=== PATIENT | female | born 1975 | race Caucasian/White ===

== ENCOUNTER 2017-03-05 12:39 | Emergency (ER) | payer MEDICAID ==
[~2017-03-05] VITALS: Ht 157.5 cm; Wt 49.9 kg
[~2017-03-05 12:39] MED LIST: BIOTIN1 M1 PO; CELEXA 20 MG TA20 MG PO; CIPRO500 MG PO; HUMALOG100 UNIT/1 SUBQ; LANTUSSOLASTAR SUBQ; LEVOTHYROXINE100 MC1 PO; LIORESAL 10 MG10 MG PO; LISINOPRIL10 MG; PRILOSEC 20 MG20 MG PO; SYNTHROID25 MCG PO; VITAMIN B-1100 M1 PO; VITAMIN B122500 MCG PO; VOLTAREN GEL 1100 G2 TOP
[2017-03-05] MEDS ORDERED: REGLAN 10 MG TA10 MG PO (12:45)
[2017-03-05 12:55] LABS: ABSOLUTE BASOPHILS 0.1 thou/uL (0.0-0.2); ABSOLUTE EOSINOPHILS 0.1 thou/uL (0.0-0.7); ABSOLUTE LYMPHOCYTES 1.4 thou/uL (0.8-5.3); ABSOLUTE MONOCYTES 0.8 thou/uL (0.0-1.2); ABSOLUTE NEUTROPHILS 9.7 thou/uL (1.6-8.1); BASOPHILS 0.6 %; EOSINOPHILS 0.6 %; HEMATOCRIT 44.1 % (37.0-47.0); HEMOGLOBIN 14.8 gm/dL (12.0-15.0); LYMPHOCYTES 11.5 %; MCHC 33.6 g/dL (28.0-37.0); MCV 98.2 fL (80.0-100.0); MONOCYTES 6.8 %; MPV 8.5 fl. (7.2-11.1); NUCLEATED RBCS 0 /100WBC; PLATELET COUNT* 399 thou/uL (150-400); POLYS 80.5 %; RBC 4.49 mil/uL (4.20-5.00)
[2017-03-05 13:04] LABS: ANION GAP 9 mmol/L (7-16); BUN 10 mg/dL (7-18); CALCIUM 9.2 mg/dL (8.5-10.1); CHLORIDE 102 mmol/L (98-107); CO2 28 mmol/L (21-32); CREATININE 0.8 mg/dL (0.6-1.3); GLUCOSE 201 mg/dL (70-99); POTASSIUM 4.4 mmol/L (3.5-5.1); SODIUM 139 mmol/L (136-145)
[2017-03-05 13:09] LABS: APTT 26.1 Seconds (25.0-31.3); PROTIME 9.9 Seconds (9.20-11.50)
[2017-03-05 13:22] LABS: ALKALINE PHOSPHATASE 75 U/L (46-116); CK-MB MASS 0.5 ng/mL (<0.5-3.6); LIPASE 79 U/L (73-393); MAGNESIUM 1.9 mg/dL (1.8-2.4); NT-PRO BRAIN NAT PEPTIDE 129 pg/mL (<300); SGOT 22 U/L (15-37); SGPT 16 U/L (30-65); TOTAL BILIRUBIN 0.2 mg/dL (<0.1-1.0); TOTAL PROTEIN 7.6 g/dL (6.4-8.2); TROPONIN-I LEVEL <0.06 ng/mL (<0.06)
[2017-03-05 14:01] VITALS: BP 137/75
[2017-03-06] MEDS ORDERED: LANTUS100 UNIT/M SUBQ (01:49)
[2017-03-06] MEDS ORDERED: HUMALOG100 UNIT/1 SUBQ (01:49)
== END 2017-03-05 14:02 | disposition home or self-care (01) ==
LOC: M.ERS 12:39
PROVIDERS: Family Medicine
DX: R07.89 Other chest pain (principal); E11.9 Type 2 diabetes mellitus without complications; E03.9 Hypothyroidism, unspecified; F41.9 Anxiety disorder, unspecified; F32.9 Major depressive disorder, single episode, unspecified; F17.210 Nicotine dependence, cigarettes, uncomplicated; F10.99 Alcohol use, unspecified with unspecified alcohol-induced disorder; Z86.59 Personal history of other mental and behavioral disorders

== ENCOUNTER 2017-03-05 22:44 | Emergency (ER) | payer MEDICAID ==
[~2017-03-05] VITALS: Ht 157.5 cm; Wt 49.9 kg
--- NOTE | ~2017-03-05 | EKG ---
[place] [address] ELECTROCARDIOGRAM REPORT Name: HONORIO PADILLA Room: [facility]#: [id number] Admission: 03/05/17 Attend Phys: Discharge: 03/06/17 Date of : 79 Report #: [id number] THIS REPORT FOR: //name// [facility] ED Test Date: 2017-03-05 Test Time: 12:41:49 Pat Name: HONORIO PADILLA Department: Room: Gender: F Rehabilitation Medicine Physician: MANUELA : 1975 Requested By: Henrique Short Order Number: [id number] MD: Measurements Intervals [place] Rate: 110 P: 68 IA: 137 QRS: 34 QRSD: 79 T: 62 QT: 314 QTc: 425 Interpretive Statements Sinus tachycardia Probable left atrial enlargement Compared to ECG 12/18/2016 20:37:50 Sinus rhythm no longer present [email or web address] By: 1241 1241 Epiphany MD Zara /FRANK
[~2017-03-05 22:44] MED LIST changes: +REGLAN 10 MG TA10 MG PO
[2017-03-05 23:21] LABS: ABSOLUTE EOSINOPHILS 0.2 thou/uL (0.0-0.7); ABSOLUTE LYMPHOCYTES 2.2 thou/uL (0.8-5.3); ABSOLUTE MONOCYTES 0.8 thou/uL (0.0-1.2); ABSOLUTE NEUTROPHILS 5.6 thou/uL (1.6-8.1); BASOPHILS 0.5 %; EOSINOPHILS 2.1 %; HEMATOCRIT 42.9 % (37.0-47.0); HEMOGLOBIN 14.4 gm/dL (12.0-15.0); LYMPHOCYTES 25.3 %; MCH 33.1 pg (26.0-34.0); MCHC 33.7 g/dL (28.0-37.0); MCV 98.2 fL (80.0-100.0); MONOCYTES 8.9 %; MPV 8.1 fl. (7.2-11.1); NUCLEATED RBCS 0 /100WBC; PLATELET COUNT* 372 thou/uL (150-400); POLYS 63.2 %; RBC 4.37 mil/uL (4.20-5.00); RDW-CV 13.8 % (10.5-14.5); WBC 8.8 thou/uL (4.0-11.0)
[2017-03-05 23:30] LABS: ANION GAP 10 mmol/L (7-16); BUN 11 mg/dL (7-18); CALCIUM 9.3 mg/dL (8.5-10.1); CHLORIDE 102 mmol/L (98-107); CO2 28 mmol/L (21-32); CREATININE 0.7 mg/dL (0.6-1.3); GLUCOSE 132 mg/dL (70-99); SODIUM 140 mmol/L (136-145)
[2017-03-05 23:32] LABS: POTASSIUM 3.4 mmol/L (3.5-5.1)
[2017-03-05 23:37] LABS: ALBUMIN 3.8 g/dL (3.4-5.0); ALKALINE PHOSPHATASE 70 U/L (46-116); SGOT 15 U/L (15-37); SGPT 17 U/L (30-65); TOTAL BILIRUBIN 0.2 mg/dL (<0.1-1.0); TOTAL PROTEIN 7.2 g/dL (6.4-8.2); TROPONIN-I LEVEL <0.06 ng/mL (<0.06)
[2017-03-05 23:50] LABS: AMP/METHAMP POSITIVE (Negative); BARBITURATES Negative (Negative); BENZODIAZEPINES Negative (Negative); COCAINE Negative (Negative); METHADONE Negative (Negative); OPIATES Negative (Negative); PCP Negative (Negative); THC Negative (Negative)
[2017-03-06] MEDS ORDERED: LANTUS100 UNIT/M SUBQ (01:49)
[2017-03-06] MEDS ORDERED: HUMALOG100 UNIT/1 SUBQ (01:49)
[2017-03-06 05:54] VITALS: BP 120/77
== END 2017-03-06 05:54 | disposition home or self-care (01) ==
LOC: M.ERS 22:44
PROVIDERS: Emergency Medicine
DX: F23 Brief psychotic disorder (principal); E11.9 Type 2 diabetes mellitus without complications; E03.9 Hypothyroidism, unspecified; F41.9 Anxiety disorder, unspecified; F32.9 Major depressive disorder, single episode, unspecified; F17.210 Nicotine dependence, cigarettes, uncomplicated